=== PATIENT | female | born 1945 | race Caucasian/White ===

== ENCOUNTER 2017-09-03 07:30 | Emergency (ER) | payer MEDICARE, OTHER ==
[~2017-09-03] VITALS: Ht 167.6 cm; Wt 79.4 kg
[2017-09-03] MEDS ORDERED: Zithromax250 MG PO (10:10)
== END 2017-09-03 10:21 | disposition home or self-care (01) ==
LOC: ER 07:30
DX: R05 Cough (principal); Z87.891 Personal history of nicotine dependence
CPT/HCPCS: 71046; 99283; J1100

== ENCOUNTER → 2021-05-30 | Outpatient (CLI) | payer MEDICARE, OTHER ==
[~2021-05-30] MED LIST: Zithromax250 MG PO
[2021-06-03 16:07] LABS: M-SPIKE, % Not Observed % (Not Observed); PROTEIN,TOTAL,URINE 6.6 mg/dL (Not Estab.)
== END | disposition home or self-care (01) ==
LOC: LAB SHORT 06:33 → LAB FUT 05-28 08:35
PROVIDERS: Internal Medicine
DX: R79.89 Other specified abnormal findings of blood chemistry (principal)
CPT/HCPCS: 81050; 84166; 86335

== ENCOUNTER → 2023-07-23 | Outpatient (CLI) | payer MEDICARE, OTHER | LOC: LAB SHORT 09:01 → LAB 09:01 | DX: H60.91 Unspecified otitis externa, right ear (principal) | CPT/HCPCS: 87070; 87205 ==